=== PATIENT | female | born 1970 | race Hispanic/Latino ===

== ENCOUNTER 2018-05-02 11:20 | Day surgery (SDC) | payer BC ==
[2018-05-01 10:14] VITALS: BMI 50.3
[2018-05-02] MEDS ORDERED: PROPOFOL 200 MG/20 ML VIAL ONE (13:22)
--- NOTE | 2018-05-02 15:00 | OP ---
DATE OF PROCEDURE: 05/02/2018 TITLE OF PROCEDURE: Colonoscopy with biopsy. PREOPERATIVE DIAGNOSES: 1. Chronic diarrhea. 2. Hematochezia. 3. History of gastric bypass in 2005. POSTOPERATIVE DIAGNOSES: 1. Exam to distal terminal ileum; good bowel preparation. 2. Normal terminal ileum. 3. Grossly normal appearing colon, biopsied in the transverse colon, and sigmoid colon for histopath ology. 4. Small internal hemorrhoids. 5. No polyps seen. 6. Otherwise normal colonoscopy. PROCEDURE IN DETAIL: Written informed consent was obtained. The patient was brought to the endoscop y suite. Total intravenous anesthesia was provided by Bryanna Cruz CRNA. The patient was placed in the left lateral decubitus position. A digital rectal exam was performed that was unremarkable. A Pentax video colonoscope was inserted through the anal canal and advanced under direct visualization to the distal terminal ileum. The quality of the bowel preparation was good. Each colon segment was examined carefully as the colonoscope was slowly withdrawn from the cecum. Vascular pattern and marshall stral folds appeared normal. Random biopsies were obtained in the transverse and sigmoid colon for h istopathology. There was no overt colitis or polyp identified. In the rectum, a retroflexed exam de monstrated small nonbleeding internal hemorrhoids. The colon was decompressed as the colonoscope was removed from the patient. She was transferred to the day stay surgery area for post-procedure monit oring. There were no immediate complications. RECOMMENDATIONS: 1. Await pathology results. 2. Ask the patient to call me for pathology results. 3. Try Imodium tablets 1 pill b.i.d. p.r.n. for diarrhea. 4. Repeat colonoscopy for screening purposes in 10 years. 5. Follow up with GI in 1 month.
== END 2018-05-02 15:13 | disposition home or self-care (01) ==
LOC: SDC 11:20
PROVIDERS: ATTEND Internal Medicine Gastroenterology
PROC: 0DBL8ZX Excision of Transverse Colon, Via Natural or Artificial Opening Endoscopic, Diagnostic (ICD-10-PCS; principal; 2018-05-02)
PROC: 0DBN8ZX Excision of Sigmoid Colon, Via Natural or Artificial Opening Endoscopic, Diagnostic (ICD-10-PCS; principal; 2018-05-02)
DX: K92.1 Melena (principal); K52.832 Lymphocytic colitis; K52.9 Noninfective gastroenteritis and colitis, unspecified; K64.8 Other hemorrhoids; I10 Essential (primary) hypertension; E11.9 Type 2 diabetes mellitus without complications; F17.210 Nicotine dependence, cigarettes, uncomplicated; Z79.899 Other long term (current) drug therapy; Z98.84 Bariatric surgery status
CPT/HCPCS: 88305

== ENCOUNTER 2019-01-23 09:28 | Outpatient (CLI) | payer BC ==
--- NOTE | 2019-01-23 10:15 | RAD ---
LEFT KNEE FOUR VIEWS: HISTORY: Knee pain. COMPARISON: None. FINDINGS: There is significant joint effusion. No fracture. No malalignment. Soft tissues are unremarkable. Mild enthesopathic changes of the quadriceps tendon. IMPRESSION: No acute fracture or malalignment. POS: [facility]
== END 2019-01-23 09:29 | disposition home or self-care (01) ==
LOC: BICRAD 09:28
PROVIDERS: ATTEND Family Medicine
DX: M25.562 Pain in left knee (principal)

== ENCOUNTER 2019-02-04 13:25 | Outpatient (CLI) | payer BC ==
--- NOTE | 2019-02-04 15:19 | MRI ---
MR OF THE LEFT KNEE WITHOUT CONTRAST: 02/04/19 INDICATION: Left knee pain for two months. FINDINGS: There is a horizontally oriented tear involving the body and posterior junction of the medial meniscu s. The lateral meniscus appears intact. The ACL, PCL, MCL, and LCLC are intact. The extensor mechanis m is intact. Bone marrow signal intensity appears within normal limits. No fracture is identified. IMPRESSION: Medial meniscal tear. POS: [facility]
== END 2019-02-04 13:26 | disposition home or self-care (01) ==
LOC: MRI 13:25
PROVIDERS: ATTEND Family Medicine
DX: M19.90 Unspecified osteoarthritis, unspecified site (principal); S83.242A Other tear of medial meniscus, current injury, left knee, initial encounter

== ENCOUNTER 2020-12-14 15:23 | Outpatient (CLI) | payer BC | END 2020-12-14 15:24 | disposition home or self-care (01) | LOC: BICMAMMO 15:23 | PROVIDERS: ATTEND Family Medicine | DX: Z12.31 Encounter for screening mammogram for malignant neoplasm of breast (principal); Z91.89 Other specified personal risk factors, not elsewhere classified | CPT/HCPCS: 77063; 77067 ==

== ENCOUNTER 2022-05-17 19:00 | Outpatient (CLI) | payer BC | END 2022-05-17 19:01 | disposition home or self-care (01) | LOC: SLEEPLAB 19:00 | PROVIDERS: ATTEND Internal Medicine Critical Care Medicine | DX: G47.33 Obstructive sleep apnea (adult) (pediatric) (principal); R06.83 Snoring; E66.9 Obesity, unspecified; E11.9 Type 2 diabetes mellitus without complications; G47.10 Hypersomnia, unspecified; G47.00 Insomnia, unspecified; Z68.42 Body mass index [BMI] 45.0-49.9, adult | CPT/HCPCS: 95810 ==

== ENCOUNTER 2022-08-03 13:50 | Outpatient (CLI) | payer BC | END 2022-08-03 13:51 | disposition home or self-care (01) | LOC: BICMAMMO 13:50 | PROVIDERS: ATTEND Family Medicine | DX: Z12.31 Encounter for screening mammogram for malignant neoplasm of breast (principal); Z91.89 Other specified personal risk factors, not elsewhere classified | CPT/HCPCS: 77063; 77067 ==

== ENCOUNTER 2023-09-05 14:48 | Outpatient (CLI) | payer BC | END 2023-09-05 14:49 | disposition home or self-care (01) | LOC: BICMAMMO 14:48 | PROVIDERS: ATTEND Family Medicine | DX: Z12.31 Encounter for screening mammogram for malignant neoplasm of breast (principal); Z91.89 Other specified personal risk factors, not elsewhere classified | CPT/HCPCS: 77063; 77067 ==